=== PATIENT | female | born 1950 | race Caucasian/White ===

== ENCOUNTER 2017-03-06 13:30 | Outpatient (CLI) | payer MEDICARE ==
--- NOTE | 2017-03-07 10:08 | CT Report ---
CT OF THE BRAIN WITHOUT CONTRAST: 03/06/2017 CLINICAL INDICATION: Seven days of headache, nausea. TECHNIQUE: Axial CT images of the brain were obtained without intravenous contrast. No previous CT is available for comparison. FINDINGS: The ventricles and sulci are normal in size, shape and configuration. The basilar cisterns are patent. There is no evidence of hemorrhage, mass effect, or midline shift. The visualized orbita l contents are unremarkable. There is mild ethmoid and sphenoid mucosal thickening present. IMPRESSION: MILD CHRONIC SINUS DISEASE. OTHERWISE, NORMAL CT OF THE BRAIN WITHOUT CONTRAST. In accordance with CT protocol optimization, one or more of the following dose reduction techniques w ere utilized for this exam: automated exposure control, adjustment of mA and/or KV based on patient size, or use of iterative reconstructive technique. JOB #: [id number] EXT JOB #:[id number]
== END 2017-03-06 13:31 | disposition home or self-care (01) ==
LOC: DI 13:30
PROVIDERS: ATTEND Family Medicine
DX: J32.9 Chronic sinusitis, unspecified (principal)
CPT/HCPCS: 70450

== ENCOUNTER 2018-04-09 08:20 | Outpatient (CLI) | payer MEDICARE, OTHER ==
--- NOTE | 2018-04-09 09:39 | Ultrasound Report ---
Reason: RUQ PAIN, NAUSEA, POST PARANDIAL VOMITING Procedure Date: 04/09/2018 Accession Number: [id number] / [id number] Procedure: US - Abdomen Limited CPT Code: FULL RESULT: EXAM: ABDOMEN ULTRASOUND LIMITED, RUQ EXAM DATE: 04/09/2018 08:58 AM. CLINICAL HISTORY: Right upper quadrant pain and nausea. Postprandial vomiting. COMPARISON: 04/09/2018 9:00 AM. TECHNIQUE: Real-time scanning was performed with static images obtained. FINDINGS: Liver: Normal in size and echotexture. Liver measures at least 15.5 cm. Main portal vein flow: Hepatopetal. Gallbladder: Normal. No stones, wall thickening, or sonographic Cervantes's sign. Biliary System: CBD measures 5 mm. No intrahepatic or extrahepatic ductal dilatation. Other: None. IMPRESSION: Normal. No cholelithiasis or cholecystitis. RADIA
== END 2018-04-09 08:21 | disposition home or self-care (01) ==
LOC: DI 08:20
PROVIDERS: ATTEND Family Medicine
DX: R10.11 Right upper quadrant pain (principal); R11.2 Nausea with vomiting, unspecified
CPT/HCPCS: 76705

== ENCOUNTER 2020-09-09 18:43 | Outpatient (CLI) | payer MEDICARE, OTHER | END 2020-09-09 18:44 | disposition home or self-care (01) | LOC: COV 18:43 | PROVIDERS: ATTEND Family Medicine | DX: R06.02 Shortness of breath (principal); M79.10 Myalgia, unspecified site; R53.83 Other fatigue; R68.83 Chills (without fever); R07.0 Pain in throat; R19.7 Diarrhea, unspecified; Z20.822 Contact with and (suspected) exposure to COVID-19 ==

== ENCOUNTER 2022-03-01 10:39 | Outpatient (CLI) | payer MEDICARE ==
--- NOTE | 2022-03-01 14:44 | XRAY Report ---
PROCEDURE: Chest 2 View X-Ray INDICATIONS: SOB TECHNIQUE: 2 view(s) of the chest. COMPARISON: None. FINDINGS: Surgical changes and devices: None. Lungs and pleura: No pleural effusions or pneumothorax. Lungs are clear. Mediastinum: Mediastinal contours are normal. Heart size is normal. Bones and chest wall: No suspicious bony abnormalities. Soft tissues appear unremarkable. IMPRESSION: No acute process. Reviewed by: Jacinto Mckinney MD on 03/01/2022 2:43 PM PDT Approved by: Jacinto Mckinney MD on 03/01/2022 2:43 PM PDT Station ID: [id number]
== END 2022-03-01 10:40 | disposition home or self-care (01) ==
LOC: LAB.N 10:39 → DI.N 10:40
PROVIDERS: ATTEND Physician Assistant
DX: R06.02 Shortness of breath (principal)

== ENCOUNTER 2022-04-12 19:33 | Outpatient (CLI) | payer MEDICARE | END 2022-04-12 19:34 | disposition home or self-care (01) | LOC: SC 19:33 | PROVIDERS: ATTEND Nurse Practitioner Family | DX: G47.33 Obstructive sleep apnea (adult) (pediatric) (principal); E66.9 Obesity, unspecified; Z68.42 Body mass index [BMI] 45.0-49.9, adult | CPT/HCPCS: 95810 ==

== ENCOUNTER 2022-05-03 14:19 | Outpatient (CLI) | payer MEDICARE ==
[2022-05-03 14:54] VITALS: BP 134/70
--- NOTE | 2022-05-03 14:54 | SLEEP CARE CONSULTATION ---
Information from patient questionnaire entered by Nunu Freeman. I have reviewed and concur with the information entered by Nunu Freeman. This document represents the service I personally performed and the decisions made by , Farzana Casiano ARNP. History of Present Illness Service Date and Time: 05/03/2022 1419 Accompanied by: Madisyn Initial [place] Sleepiness Scale score: 5 (04/05/2022) Current [place] Sleepiness Scale score: 5 (05/03/22) Additional HPI information: MELODY CORDOVA returns for follow up and results of the recently performed polysomnography. I explained the pathophysiology behind obstructive sleep apnea. We then spent quite a bit of time discussing different treatment options. For mild obstructive sleep apnea, surgery and oral appliance are alternatives to nasal CPAP therapy but in moderate or severe cases, nasal CPAP is the most effective and reliable treatment. Because apnea is primarily in supine position, then positional management therapy could be effective. Methods discussed such as positioning with pillows to prevent supine sleep. I reviewed the impact of weight changes on sleep apnea and strongly recommended losing weight. After some discussion, the patient opted to go with the nasal CPAP therapy. Nasal autoCPAP set at 4-15 cmH20 will be ordered with rationale explained. A manual titration study will be ordered if unable to find optimal pressure with office adjustments. I explained how CPAP machine works and what to expect when using the machine. Using CPAP every night in order to get used to it was emphasized. Patient advised to put CPAP mask on before getting into bed so as not to fall asleep without CPAP. To assist acclimation to CPAP use, it could also be used for a short time during day while reading or watching TV. The patient was instructed to call the CPAP supplier to discuss any mechanical problem that may occur. If the mask given is uncomfortable or is difficult to keep on through the night even with adjustment, contact the CPAP supplier as many will replace with another mask style if notified before 30 days. If snoring or perceives is not getting enough air or too much air from the machine, notify this office. Patient does not drink alcohol. Patient was cautioned about risks of drowsy driving until sleepiness symptoms resolve. Patient denies drowsy driving. Sleep Study - Results Type of Sleep Study: Polysomnography (DONE 04/12/22) Prior sleep studies: No Polysomnography/Home Sleep Study results: IMPRESSION: The quality of the study is good. The patient had normal sleep efficiency. Despite moderate sleep fragmentation, the sleep architecture was normal. Respiratory monitoring showed moderate obstructive sleep apneahypopnea (AHI = 16.8) associated with frequent arousals, oxyhemoglobin desaturation and mild hypoxia (justus oxygen saturation of 80%). The respiratory events occurred mainly during supine REM sleep (supine AHI = 20.7; non-supine = 8.33). Snore was moderate in intensity. There was no significant periodic leg movement of sleep. Cardiac rhythm was normal sinus rhythm without significant arrhythmia. No abnormal behavior (parasomnia) observed during the night. Allergies and Home Medications Home medication list reviewed: Yes (no changes) Allergy and home medication list: Allergies fish oil Allergy (Verified 10/26/16 14:55) Rash Sulfa (Sulfonamide Antibiotics) Allergy (Verified 10/26/16 14:55) Rash Review of Systems Review of systems same as previous: Yes (no changes) Physical Exam Vital signs obtained and entered by: LOUIS MAZARIEGOS Blood Pressure: 134/70 (left arm ) Cuff size: long Heart Rate: 91 O2 Saturation: 94 Height: 5 ft 5 in Weight: 276 lb Body Mass Index: 45.9 BMI Classification: Morbidly Obese Impression and Plan 1. Obstructive Sleep Apnea-Hypopnea Syndrome, moderate, with lowest oxygen saturation of 80%. Obviously this is the cause of the patients symptoms of unrefreshed sleep, and excessive daytime sleepiness. Positive pressure therapy could benefit diabetes, anxiety, depression and attention deficit. As mentioned above, the patient will be started on nasal autoCPAP therapy with pressure set at 4-15 cmH2O. A manual titration study will be completed if unable to find optimal treatment pressure with office adjustments. Compliance guidelines also reviewed. A copy of compliance guidelines will be given for reference at check out. Because the apnea is more severe supine, I instructed to avoid sleeping supine using pillow positioning until able to start CPAP use. 2. Hypoxemia, mild, with a justus oxygen saturation of 80% and 266.3 minutes spent under 90%. Her baseline oxygen saturation was low normal with an average oxygen saturation of 88%. * Nasal auto CPAP therapy, pressure at 4-15 cm H2O. * Attempt to lose weight. * Avoid alcohol consumption near bedtime. * Avoid supine sleep until using CPAP. * The patient is again cautioned about driving until sleepiness completely resolves. * Return one month after CPAP obtained. I will assess response to therapy and compliance at that time. Counseling Topics: Sleeping position, Weight loss health impact Visit Type: In Office Other Participants: Other (Friend, Madisyn) Time Spent with Patient (minutes): 25 Provider Statement: I spent 100% of the Face to Face Visit with the patient with greater than 50% spent counseling the patient and coordination of care.
== END 2022-05-03 14:20 | disposition home or self-care (01) ==
LOC: SC 14:19
PROVIDERS: ATTEND Nurse Practitioner Family
DX: G47.33 Obstructive sleep apnea (adult) (pediatric) (principal); R09.02 Hypoxemia; E66.01 Morbid (severe) obesity due to excess calories; Z68.42 Body mass index [BMI] 45.0-49.9, adult
CPT/HCPCS: 99213; G0463; 99212

== ENCOUNTER 2022-08-10 10:57 | Outpatient (CLI) | payer MEDICARE ==
[2022-08-10 11:15] LABS: CREATININE 0.8 mg/dL (0.4-1.0)
[2022-08-10] MEDS ORDERED: iohexoL-300 100 ML VIAL ONE (11:35)
[2022-08-10] MEDS ORDERED: iohexoL-300 100 ML VIAL IVP ONE (11:59)
--- NOTE | 2022-08-10 19:12 | CT Report ---
PROCEDURE: IVP INDICATIONS: HEMATURIA CONTRAST: 140ml Omnipaque 300 TECHNIQUE: After the administration of intravenous contrast, 5 mm thick sections acquired from the diaphragms to the symphysis. 5 mm thick coronal and sagittal reformats were acquired. For radiation dose reducti on, the following was used: automated exposure control, adjustment of mA and/or kV according to shelley ent size. COMPARISON: None. FINDINGS: Image quality: Excellent. Lung bases: Bibasilar atelectasis with more linear consolidation in the left lung base. Heart size is normal. Urinary system: Right kidney is normal in size without hydronephrosis or nephrolithiasis on precontrast imaging. Left kidney demonstrates a nonobstructing 3 mm stone. No perinephric stranding. Bilateral ureters are nor mal in course and caliber. No perinephric fat stranding. There is normal bilateral renal enhancement. Renal calyces appear normal in morphology when filled with contrast. Opacified portions of both ureters demonstrate normal caliber. Bladder wall thickness is normal. No calcified bladder stones. Other solid organs: Liver is normal in size and enhancement. Gallbladder is unremarkable. Biliary system is non dilated. Pancreas enhances normally. Spleen is normal in size and enhancement. No adrenal nodules. Peritoneum and bowel: Bowel loops demonstrate normal wall thickness and caliber. Scattered colonic d iverticula without evidence for acute diverticulitis. No free fluid or air. Nodes and vessels: No retroperitoneal or mesenteric adenopathy by size criteria. Aorta and inferior vena cava are normal in size. Scattered atherosclerotic calcifications of the abdo jessica aorta. Abdominal wall: No ventral hernias. Pelvis: No pathologic free pelvic fluid. No inguinal hernias. No pelvic adenopathy. Bones: No suspicious bony lesions. No acute vertebral body compression fractures. Multilevel spondylosis of the imaged spine. IMPRESSION: 1. A 3 mm nonobstructing left renal stone without evidence for hydronephrosis. No ureteral stone or a cute inflammatory changes identified. Otherwise, unremarkable CT IVP. No acute abnormalities identifi ed in the abdomen or pelvis. 2. Bibasilar atelectasis with more prominent linear consolidation along the left lung base favored to represent atelectasis/scarring. 3. Colonic diverticulosis without acute diverticulitis. Reviewed by: Dany Salgado MD on 08/10/2022 7:11 PM PST Approved by: Dany Salgado MD on 08/10/2022 7:11 PM [facility] Station ID: [id number]
== END 2022-08-10 10:58 | disposition home or self-care (01) ==
LOC: LAB 10:57
PROVIDERS: ATTEND Urology
DX: N20.0 Calculus of kidney (principal); J98.11 Atelectasis; K57.30 Diverticulosis of large intestine without perforation or abscess without bleeding
CPT/HCPCS: 36415; 74178; 82565; 84520; Q9967

== ENCOUNTER 2022-12-18 07:53 | Outpatient (CLI) | payer MEDICARE ==
--- NOTE | 2022-12-18 10:38 | XRAY Report ---
PROCEDURE: Lumbar Spine 2 View INDICATIONS: LOW BACK PX TECHNIQUE: 2 views of the lumbar spine were acquired. COMPARISON: None. FINDINGS: Bones: 5 [id number] vertebrae are present. Grade 1 anterolisthesis of L4 on L5, similar due to facet arthrosis. Mild to moderate, multilevel degenerative disc disease. Facet arthrosis L3-S1. Soft tissues: Overlying bowel gas pattern is normal. No suspicious soft tissue calcifications. IMPRESSION: Mild to moderate, multilevel degenerative disc disease and lower lumbar facet arthrosis. Reviewed by: Bolivar Neri on 12/18/2022 10:37 AM PDT Approved by: Bolivar Neri on 12/18/2022 10:37 AM PDT Station ID: [id number]
== END 2022-12-18 07:54 | disposition home or self-care (01) ==
LOC: DI 07:53
PROVIDERS: ATTEND Physician Assistant
DX: M51.36 Other intervertebral disc degeneration, lumbar region (principal); M47.816 Spondylosis without myelopathy or radiculopathy, lumbar region; M47.817 Spondylosis without myelopathy or radiculopathy, lumbosacral region

== ENCOUNTER 2023-01-03 12:50 | Outpatient (CLI) | payer MEDICARE ==
--- NOTE | 2023-01-03 14:21 | Ultrasound Report ---
PROCEDURE: Ankle Brachial Index INDICATIONS: PAIN IN RIGHT LEG TECHNIQUE: Ankle-brachial indices were obtained bilaterally and recorded. COMPARISONS: None. FINDINGS: Right ankle brachial index (GIACOMO): 0.96 Left ankle brachial index (GIACOMO): 0.93 Healing potential: Ankle pressures >55 mm Hg in non-diabetics and >80 mm Hg in diabetics are likely to achieve primary h ealing of ischemic foot ulcers. Toe pressures >30 mm Hg are likely to achieve primary healing of ischemic foot ulcers, toe or transme tatarsal amputations. IMPRESSION: Mildly diminished ABIs, not frankly abnormal. Comment: Consider repeating ABIs at stress and at rest to identify whether a hemodynamically signific ant lesion is unmasked. Reviewed by: Domenico Frey MD on 01/03/2023 2:20 PM PDT Approved by: Domenico Frey MD on 01/03/2023 2:20 PM PDT Station ID: [id number]
== END 2023-01-03 12:51 | disposition home or self-care (01) ==
LOC: DI 12:50
PROVIDERS: ATTEND Physician Assistant
DX: M53.3 Sacrococcygeal disorders, not elsewhere classified (principal); M79.604 Pain in right leg
CPT/HCPCS: 93922

== ENCOUNTER 2023-03-21 13:16 | Outpatient (CLI) | payer MEDICARE ==
--- NOTE | 2023-03-21 18:31 | XRAY Report ---
PROCEDURE: Calcaneus LT INDICATIONS: HEEL PAIN,LEFT TECHNIQUE: Two views of the calcaneus were acquired. COMPARISON: None FINDINGS: Bones: No fractures or dislocations. No suspicious bony lesions. Minimal linear soft tissue calcif ication noted associated with the plantar fascia as well as the Achilles tendon Soft tissues: No suspicious calcifications. Achilles tendon appears normal. IMPRESSION: Minimal linear degenerative soft tissue calcification Reviewed by: Gordon Glass MD on 03/21/2023 5:29 PM [facility] Approved by: Gordon Glass MD on 03/21/2023 5:29 PM [facility] Station ID: [id number]
== END 2023-03-21 13:17 | disposition home or self-care (01) ==
LOC: DI 13:16
PROVIDERS: ATTEND Registered Nurse
DX: M79.672 Pain in left foot (principal); M61.472 Other calcification of muscle, left ankle and foot

== ENCOUNTER 2023-04-24 11:12 | Outpatient (CLI) | payer MEDICARE ==
--- NOTE | 2023-04-24 11:34 | Sleep Patient Instructions ---
Sleep Center Visit Summary - Patient Visit Information Reason for Visit: First compliance followup for PAP therapy - Patient Instructions Additional Instructions: You will continue with CPAP therapy with pressure changed to 10-12 cmH2O. A supply prescription will be updated with your DME. We encourage you to continue to try to lose weight. Please follow up with the sleep care office in 1 year. - Clinic Information Contact: [facility] [address] [place] [address] [email or web address] T: [phone]
--- NOTE | 2023-04-24 11:38 | SLEEP CARE CONSULTATION ---
Information from patient questionnaire entered by Angelia Osei. I have reviewed and concur with the information entered by Angelia Osei. This document represents the service I personally performed and the decisions made by , Farzana Casiano ARNP. History of Present Illness Service Date and Time: 04/24/2023 111 Previous diagnosis: Moderate, Obstructive Sleep Apnea-Hypopnea Syndrome AHI: 16.8 (03/2022) Reason for follow up: first compliance (and annual visit) Equipment type: CPAP (ResMed Airsense 11, s/u 06/2022) Equipment obtained from: [employer] (getting supplies) Mask style: Nasal Mask brand: Respironics (Dreamwear, medium headgear and medium cushion) Backup mask available: Yes (needs supplies) Last cushion change: 4 months Prior sleep studies: No Type of Sleep Study: Polysomnography (DONE 04/12/22) HPI additional information: MELODY CORDOVA was diagnosed to have moderate, AHI 16.8, obstructive sleep apnea-hypopnea syndrome and returned today for CPAP therapy first compliance follow-up. Sleep Study - Results Type of Sleep Study: Polysomnography (DONE 04/12/22) Prior sleep studies: No CPAP Compliance Data - Data Reviewed with Patient Average duration of nightly device use: 6 HRS 25 MINS Compliance rate %: 87 (03/21/23-04/19/23; /30 days used) Current pressure setting (cmH2O): 4-15 (median 8.4, avg 11.5, max 12.6) Average residual AHI: 1.4 Central apnea: 0.1 Obstructive apnea: 0.9 Average large leak: 2.1 L/min Subjective Patient concerns: denies: aerophagia, mask discomfort, air blowing in eyes, mask leak noise, condensation in mask/hose, nasal congestion, dry mouth, nose, throat, epistaxis Observed to snore while using device: No Current pressure setting perceived as: comfortable On therapy, patient: reports: sleeping better, awakening more refreshed, being more awake and alert during the day, more rested overall. denies: drowsiness while driving Initial [place] Sleepiness Scale score: 5 (04/05/2022) Current [place] Sleepiness Scale score: 3 (04/24/23) Allergies and Home Medications Known drug allergies: Yes Drug allergies reviewed: Yes Home medication list reviewed: Yes (no changes) Allergy and home medication list: Allergies fish oil Allergy (Verified 04/23/23 09:08) Rash Sulfa (Sulfonamide Antibiotics) Allergy (Verified 04/23/23 09:08) Rash Home Medications Medication Instructions Recorded Confirmed Last Taken Type Cholecalciferol (Vitamin D3) 2,000 unit PO DAILY 10/26/16 04/24/23 Unknown History [Vitamin D] Citalopram [CeleXA] 20 mg PO DAILY 10/26/16 04/24/23 Unknown History Metformin HCl 500 mg PO BIDWM 10/26/16 04/24/23 Unknown History Naproxen Sodium [Aleve] 220 mg PO DAILY PRN 10/26/16 04/24/23 Unknown History Review of Systems Review of systems same as previous: Yes (no changes) Physical Exam Vital signs obtained and entered by: ANGELIA Barahona MA Blood Pressure: 143/70 (RIGHT) Cuff size: wrist Heart Rate: 72 O2 Saturation: 93 Height: 5 ft 5 in Weight: 275 lb 12.8 oz Weight change since last visit: 1 lb loss - walking new dog Body Mass Index: 45.8 BMI Classification: Morbidly Obese Impression and Plan 1. Obstructive Sleep Apnea-Hypopnea Syndrome, moderate, with good treatment compliance and good apnea control. On CPAP therapy, the patient has better sleep quality and is more rested overall. Patient has significant improvement of their sleep apnea and is satisfied with current CPAP therapy. Patient is definitely compliant since she started using her CPAP. She has had some issues with getting supplies but we did not see her for her compliance visit last year. I will update her prescription with her [email or web address] company. The patients pressure will be changed to autoCPAP 10-12 cmH20 to reflect pressure being used. Patient advised to contact me if pressure change is uncomfortable so that it can be adjusted. Goals for apnea control discussed. Patient's apnea severity and rationale for treatment to reduce apnea, improve sleep quality and reduce cardiovascular and cerebrovascular events was reviewed. I also reviewed the benefit of consistent device use of CPAP for diabetes, depression, anxiety and attention deficit. 2. Obesity, unspecified. Currently patients BMI is 45.8. She states she did gain to over 280 pounds but has been losing weight since she got a new dog and has been taking walks with them. Obesity increases the risk of apnea, CPAP pressure requirements and overall health risks especially cardiovascular and diabetes. Thus patient is advised to continue to try to lose weight. * Continue auto CPAP pressure at 10-12 cmH2O * Update supplies * Notify me if snoring with mask or feeling that the pressure is too much or too little * Continue to try to lose weight * Call this office if any problems using CPAP * Return for follow up in 1 year, or sooner if concerns arise Counseling Topics: Spare mask, Weight loss health impact Prescriptions: Device supplies Visit Type: In Office Time Spent with Patient (minutes): 21 Provider Statement: I spent 100% of the Face to Face Visit with the patient with greater than 50% spent counseling the patient and coordination of care.
[2023-04-24 11:41] VITALS: BP 143/70; O2SAT 93
== END 2023-04-24 11:13 | disposition home or self-care (01) ==
LOC: SC 11:12
PROVIDERS: ATTEND Nurse Practitioner Family
DX: G47.33 Obstructive sleep apnea (adult) (pediatric) (principal); E66.01 Morbid (severe) obesity due to excess calories; Z68.42 Body mass index [BMI] 45.0-49.9, adult
CPT/HCPCS: 99213; G0463; 99212

== ENCOUNTER 2023-07-04 11:10 | Outpatient (CLI) | payer MEDICARE ==
--- NOTE | 2023-07-04 11:41 | Sleep Patient Instructions ---
Sleep Center Visit Summary - Patient Visit Information Reason for Visit: Two Month Followup - Patient Instructions Additional Instructions: You were here for follow up of CPAP therapy. You will be continued on CPAP therapy with pressure at 10-12 cmH2O. You should follow up with sleep care in 6 months. You may contact us sooner for any questions or concerns. - Clinic Information Contact: [facility] [address] [place] [id number] [email or web address] T: [phone]
--- NOTE | 2023-07-04 11:45 | SLEEP CARE CONSULTATION ---
Information from patient questionnaire entered by Nikki Osei. I have reviewed and concur with the information entered by Nikki Osei. This document represents the service I personally performed and the decisions made by , Farzana Casiano ARNP. History of Present Illness Service Date and Time: 07/04/2023 1110 Previous diagnosis: Moderate, Obstructive Sleep Apnea-Hypopnea Syndrome AHI: 16.8 (03/2022) Reason for follow up: other (Two month follow up) Equipment type: CPAP (ResMed Airsense 11, s/u 06/2022) Equipment obtained from: [employer] (getting supplies) Mask style: Nasal Backup mask available: Yes Prior sleep studies: No Type of Sleep Study: Polysomnography (DONE 04/12/22) HPI additional information: THU CORDOVA was diagnosed to have moderate, AHI 16.8, obstructive sleep apnea-hypopnea syndrome and returned today for CPAP therapy two month follow-up. Sleep Study - Results Type of Sleep Study: Polysomnography (DONE 04/12/22) Prior sleep studies: No CPAP Compliance Data - Data Reviewed with Patient Average duration of nightly device use: 6 HRS 41 MIN Compliance rate %: 75 (05/03/23-07/01/23; 45/60 days used) Current pressure setting (cmH2O): 10-12 Average residual AHI: 1.4 Central apnea: 0.2 Obstructive apnea: 0.9 Average large leak: 3.7 L/min Subjective Missed days of use due to: reports: other (fall asleep in recliner due to taking Trazodone) Patient concerns: denies: aerophagia, mask discomfort, air blowing in eyes, mask leak noise, condensation in mask/hose, nasal congestion, dry mouth, nose, throat, epistaxis Observed to snore while using device: No Current pressure setting perceived as: comfortable On therapy, patient: reports: sleeping better, awakening more refreshed, being more awake and alert during the day, more rested overall. denies: drowsiness while driving Initial [place] Sleepiness Scale score: 5 (04/05/2022) Current [place] Sleepiness Scale score: 8 (07/04/23) Allergies and Home Medications Known drug allergies: Yes (as listed) Drug allergies reviewed: Yes Home medication list reviewed: Yes (Zinc 50 mg) Allergy and home medication list: Allergies fish oil Allergy (Verified 07/03/23 14:11) Rash Sulfa (Sulfonamide Antibiotics) Allergy (Verified 07/03/23 14:11) Rash Review of Systems Review of systems same as previous: Yes (NO CHANGE) Physical Exam Vital signs obtained and entered by: NIKKI Barahona MA Blood Pressure: 136/83 (LEFT) Cuff size: wrist Heart Rate: 73 O2 Saturation: 92 Height: 5 ft 5 in Weight: 273 lb 12.8 oz Body Mass Index: 45.6 BMI Classification: Morbidly Obese Impression and Plan 1. Obstructive Sleep Apnea-Hypopnea Syndrome, moderate, with good treatment compliance and good apnea control. On CPAP therapy, the patient has better sleep quality and is more rested overall. Patient has significant improvement of their sleep apnea and is satisfied with current CPAP therapy. Patient denies problems with oral dryness, nasal congestion, epistaxis, skin irritation or aerophagia. Thu will followup with us in 6 months or sooner if needed. Patient's apnea severity and rationale for treatment to reduce apnea, improve sleep quality and reduce cardiovascular and cerebrovascular events was reviewed. I also reviewed the benefit of consistent device use of CPAP for diabetes, depression, anxiety and attention deficit. 2. Obesity, unspecified. Currently patients BMI is 45.6. Obesity increases the risk of apnea, CPAP pressure requirements and overall health risks especially cardiovascular and diabetes. Thus patient is advised to lose weight. * Continue auto CPAP pressure at 10-12 cmH2O * Notify me if snoring with mask or feeling that the pressure is too much or too little * Attempt to lose weight * Call this office if any problems using CPAP * Return for follow up in 6 months, or sooner if concerns arise Counseling Topics: Spare mask, Weight loss health impact Follow up with Sleep Care in: 6 months Visit Type: In Office Time Spent with Patient (minutes): 20 Provider Statement: I spent 100% of the Face to Face Visit with the patient with greater than 50% spent counseling the patient and coordination of care.
[2023-07-04 11:49] VITALS: BP 136/83; O2SAT 92
== END 2023-07-04 11:11 | disposition home or self-care (01) ==
LOC: SC 11:10
PROVIDERS: ATTEND Nurse Practitioner Family
DX: G47.33 Obstructive sleep apnea (adult) (pediatric) (principal); E66.01 Morbid (severe) obesity due to excess calories; Z68.42 Body mass index [BMI] 45.0-49.9, adult
CPT/HCPCS: 99213; G0463; 99212

== ENCOUNTER 2023-08-23 11:09 | Outpatient (CLI) | payer MEDICARE ==
[2023-08-23] MEDS ORDERED: ALBUTEROL 1 PUFF INH STA (14:45)
== END 2023-08-23 11:10 | disposition home or self-care (01) ==
LOC: RT 11:09
PROVIDERS: ATTEND Physician Assistant
DX: R05.9 Cough, unspecified (principal); R06.02 Shortness of breath
CPT/HCPCS: 94060; 94729

== ENCOUNTER 2023-09-12 11:36 | Outpatient (CLI) | payer MEDICARE ==
[2023-09-12 12:03] LABS: CALCIUM 9.2 mg/dL (8.5-10.3); CREATININE 0.9 mg/dL (0.6-1.3)
[2023-09-12] MEDS ORDERED: iohexoL-300 100 ML VIAL ONE (12:32)
[2023-09-12] MEDS ORDERED: iohexoL-300 100 ML VIAL IVP ONE (15:13)
--- NOTE | 2023-09-12 16:42 | CT Report ---
PROCEDURE: Chest W INDICATIONS: ABN PFT CONTRAST: Omni 300 100ml TECHNIQUE: After the administration of intravenous contrast, a CT scan of the chest was performed. Images were recorded and evaluated at appropriate window settings. Reformats: axial MIP of the chest, coronal and sagittal. For radiation dose reduction, the following was used: automated exposure control, adjustme nt of mA and/or kV according to patient size. COMPARISON: CT 08/10/2022 FINDINGS: Image quality: Diagnostic Lungs and pleura:Suspected basal scarring and atelectasis. More focal area of segmental atelectasis i s seen in the left lower lobe. No honeycombing, significant peripheral reticulation, consolidation, o r pleural effusions. Mediastinum, heart, and esophagus: Borderline heart size. Prominent pericardial folds filled with flu id. There are borderline enlarged mediastinal and hilar lymph nodes, for example precarinal lymph nod e measures 9 mm in short axis (12/144). Chest wall and thyroid: Heterogeneous left thyroid nodule measures about 3 cm. Left lateral breast le amilcar measures up to 2.8 cm. Upper abdomen: No gross abnormality. Adrenal thickening and nodularity again seen. Bones: Degenerative changes. IMPRESSION: Suspected mass in the left breast, recommend diagnostic mammogram and ultrasound. This was marked as an urgent result on PACS for follow-up. Multiple heterogeneous thyroid nodules, consider thyroid nonemergent ultrasound. No significant fibrotic changes in the lungs. There is segmental atelectasis in the left lower lobe, indeterminate etiology, most commonly due to mucous plugging. In the setting of abnormal PFTs, consid er follow-up with high-resolution chest CT Reviewed by: Javier Matta MD on 09/12/2023 4:41 PM PST Approved by: Javier Matta MD on 09/12/2023 4:41 PM PST Station ID: [id number]
== END 2023-09-12 11:37 | disposition home or self-care (01) ==
LOC: DI 11:36
PROVIDERS: ATTEND Physician Assistant
DX: R94.2 Abnormal results of pulmonary function studies (principal); R93.89 Abnormal findings on diagnostic imaging of other specified body structures; E04.2 Nontoxic multinodular goiter; J98.11 Atelectasis
CPT/HCPCS: 36415; 71260; 80048; Q9967

== ENCOUNTER 2023-09-26 10:52 | Outpatient (CLI) | payer MEDICARE ==
--- NOTE | 2023-09-26 14:35 | Ultrasound Report ---
PROCEDURE: Soft Tissue Head or Neck INDICATIONS: THYROID NODULES TECHNIQUE: Real-time scanning was performed of the thyroid gland, with image documentation. COMPARISON: CT 09/12/2023 FINDINGS: Right: Thyroid lobe measures 4.4 x 1.3 x 1.7 cm, and is homogeneous in echotexture. Left: Thyroid lobe measures 5.7 x 2.9 x 1.4 cm, and is homogenous in echotexture. Isthmus: 0.4 cm thick. Left inferior thyroid nodule measures 3.7 x 2.5 x 3.6 cm. Suspected cystic/spongiform components are seen, however discrete solid components are also visualized, with a possible internal macroscopic rody cification (which was confirmed on CT). Margins are smooth. Isoechoic solid echotexture. Total 4 poin ts. IMPRESSION: TR 4 left inferior thyroid nodule. This is moderately suspicious. Macroscopic calcificat ion was confirmed on CT. Recommend FNA. ACR TI-RADS definitions and recommendations: TI-RADS 1 (benign): 0 points. FNA not needed. TI-RADS 2 (not suspicious): 2 points. FNA not needed. TI-RADS 3 (mildly suspicious): 3 points. "FNA if 2.5 cm or larger, follow up if 1.5 cm or larger (at 1, 3, and 5 years). TI-RADS 4 (moderately suspicious): 4-6 points. "FNA if 1.5 cm or larger, follow up if 1 cm or larger (at 1, 2, 3, and 5 years). TI-RADS 5 (highly suspicious): 7 points or more. "FNA if 1 cm or larger, follow up if 0.5 cm or larger (every year for 5 years). Reviewed by: Javier Matta MD on 09/26/2023 2:34 PM PST Approved by: Javier Matta MD on 09/26/2023 2:34 PM PST Station ID: [id number]
== END 2023-09-26 10:53 | disposition home or self-care (01) ==
LOC: DI 10:52
PROVIDERS: ATTEND Physician Assistant
DX: E04.1 Nontoxic single thyroid nodule (principal)

== ENCOUNTER 2023-11-27 12:26 | Outpatient (CLI) | payer MEDICARE ==
--- NOTE | 2023-11-28 10:50 | Mammography Report ---
BILATERAL DIGITAL DIAGNOSTIC MAMMOGRAM 3D/2D: 11/27/2023 CLINICAL: Suspected left breast mass seen on Chest CT. Due for bilateral exam. Comparison is made to exams dated: 07/09/2019 mammogram, 04/17/2018 mammogram, and 03/29/2017 mammogram - [facility]. There are scattered areas of fibroglandular density in both breasts (category b / 25%-50% glandular t issue). There is a 2.6 cm irregular and multilobulated asymmetry with an obscured, spiculated, indistinct, an d circumscribed margin in the left breast at 1 o'clock posterior depth. There is associated slight a rchitectural distortion. This is seen in additional views. Portions of this asymmetry are new, some parts are more prominent. No other significant masses, calcifications, or other findings are seen in either breast. Mammograms are otherwise stable. IMPRESSION: INCOMPLETE: NEEDS ADDITIONAL IMAGING EVALUATION The 2.6 cm irregular asymmetry in the left breast at the 1:00 position has developed and is suspiciou s. An ultrasound is recommended. This was performed immediately following this exam. Based on the Tyrer Cuzick model (a risk assessment model) the patient's lifetime risk is 5.3% and her 10 year risk is 3.6%. According to the ACR, ACS, and NCCN guidelines, an annual breast MRI exam segun g with mammogram is recommended if the patient's lifetime risk is 20% or greater. This exam was interpreted at Station ID: [id number]. NOTE: For mammograms, a report in lay terms will be sent to the patient. Approximately 15% of breast malignancies will not be visualized mammographically. In the management of a palpable breast mass, a negative mammogram must not discourage biopsy of a clinically suspicious lesion. Electronically Signed By: Teena cook/:11/27/2023 13:19:29 ACR BI-RADS Category 0: Incomplete 3340F PARENCHYMAL PATTERN: (A) - The breast(s) demonstrate(s) scattered fibroglandular densities. BI-RADS CATEGORY: (0) - 0 Ultrasound [id number] Immediate follow-up LATERALITY: (B)
--- NOTE | 2023-11-28 10:51 | Ultrasound Report ---
LIMITED ULTRASOUND OF LEFT BREAST AND AXILLA: 11/27/2023 CLINICAL: Abnormal CT. Left Breast mass. Comparison is made to exams dated: 11/27/2023 mammogram - [facility], 07/25/2021 ma mmogram, 07/09/2019 mammogram, 04/17/2018 mammogram, 03/29/2017 mammogram, and 03/07/2016 mammogram - [facility]. Color flow ultrasound of the left breast 1-2 o'clock, and axilla regions was performed. Kaur scale images of the real-time examination were reviewed. There is a 2.4 cm x 1.6 cm x 1.2 cm oval mass with a circumscribed, angular, and spiculated margin in the left breast at 1 o'clock middle depth 7 cm from the nipple. This oval mass is hypoechoic with p osterior acoustic shadowing. This correlates with mammography findings. There is associated archite ctural distortion. Color flow imaging demonstrates that there is increased vascularity. No significant abnormalities were seen sonographically in the left axilla. IMPRESSION: SUSPICIOUS OF MALIGNANCY The 2.4 cm x 1.6 cm x 1.2 cm oval mass in the left breast is at a moderate suspicion for malignancy. An ultrasound guided biopsy is recommended. Findings and recommendations were discussed with the tommy amin in person by Dr. Tera Nicolas at time of exam. This exam was interpreted at Station ID: [id number]. Electronically Signed By: Teena cook/:11/27/2023 13:46:12 Ultrasound BI-RADS: 4b Moderate suspicion of malignancy BI-RADS CATEGORY: (4b) - Mod Susp Biopsy [id number] Immediate follow-up LATERALITY: (L)
== END 2023-11-27 12:27 | disposition home or self-care (01) ==
LOC: DI 12:26
PROVIDERS: ATTEND Physician Assistant
DX: N63.21 Unspecified lump in the left breast, upper outer quadrant (principal)

== ENCOUNTER 2023-12-04 09:35 | Outpatient (CLI) | payer MEDICARE ==
[~2023-12-04 09:35] MED LIST: LIDOCAINE 1%-EPI 1:100000 20 ML MDV ONE; LIDOCAINE-MPF 1% 5 ML VIAL ONE
[2023-12-04] MEDS: LIDOCAINE-MPF 1% 5 ML VIAL TD ONE (11:02)
[2023-12-04] MEDS: LIDOCAINE 1%-EPI 1:100000 20 ML MDV SUBQ ONE (11:03)
--- NOTE | 2023-12-05 09:59 | Mammography Report ---
UNILATERAL LEFT DIGITAL DIAGNOSTIC MAMMOGRAM - LEFT BREAST POST-PROCEDURE IMAGING FOR MARKER PLACEMEN CLINICAL: Post left breast ultrasound biopsy clip placement imaging. Comparison is made to exams dated: 11/27/2023 ultrasound, 11/27/2023 mammogram - [facility], and 07/25/2021 mammogram - [facility]. There are scattered areas of fibroglandular density in the left breast (category b / 25%-50% glandula r tissue). There is a marker clip in the appropriate position in the left breast at 1 o'clock middle depth. IMPRESSION: POST PROCEDURE MAMMOGRAM FOR MARKER PLACEMENT There was a successful marker clip placement in the left breast middle depth. Based on the Tyrer Cuzick model (a risk assessment model) the patient's lifetime risk is 5.3% and her 10 year risk is 3.6%. According to the ACR, ACS, and NCCN guidelines, an annual breast MRI exam segun g with mammogram is recommended if the patient's lifetime risk is 20% or greater. This exam was interpreted at Station ID: [id number]. NOTE: For mammograms, a report in lay terms will be sent to the patient. Approximately 15% of breast malignancies will not be visualized mammographically. In the management of a palpable breast mass, a negative mammogram must not discourage biopsy of a clinically suspicious lesion. Electronically Signed By: Javier Matta M.D. lc/:12/04/2023 14:24:41 ACR BI-RADS Category Post-procedure mammogram for marker placement PARENCHYMAL PATTERN: (A) - The breast(s) demonstrate(s) scattered fibroglandular densities. BI-RADS CATEGORY: () - Unspecified - other recall n/a LATERALITY: (B)
--- NOTE | 2023-12-18 10:47 | Ultrasound Report ---
ULTRASOUND GUIDED BIOPSY LEFT BREAST USING VACUUM DEVICE WITH MARKING DEVICE INSERTED: 12/04/2023 CLINICAL: Left breast mass. PATIENT CONSENT: Risks (minor bleeding, infection, vasovagal reaction and repeat procedure), benefits and alternatives were explained to the patient and written informed consent was obtained. Correlation is made to exams dated: 12/04/2023 mammogram, 11/27/2023 ultrasound, 11/27/2023 mammogram - [facility], 07/25/2021 mammogram, 07/09/2019 mammogram, and 04/17/2018 mammogram - [facility]. An ultrasound guided biopsy using real-time ultrasound was performed for the concerning 2.4 cm x 1.6 cm x 1.2 cm mass located in the left breast at 1 o'clock middle depth 7 cm from the nipple. This was described on the previous ultrasound report. The skin was prepped in the usual manner. Local anest hetic was administered to the access site. A skin ny was made in the breast. The abnormality was approached from the lateral aspect. A 12 gauge biopsy needle was placed adjacent to the abnormality under ultrasound guidance. Once the needle was documented to be in the correct location, four specim ens were obtained using the Mammotome biopsy system. A clip was inserted into the biopsy cavity. Po st procedure imaging demonstrates the location device at the targeted area. The specimens were sent to the laboratory for pathological analysis. IMPRESSION: ULTRASOUND GUIDED BIOPSY MALIGNANT Ultrasound guided biopsy of the 2.4 cm x 1.6 cm x 1.2 cm mass in the left breast at 1 o'clock middle depth 7 cm from the nipple was successful. Pathology indicates malignant invasive ductal carcinoma ( ID). Pathology results are concordant with imaging findings. This lesion was biopsied on two separate days and two clips are present. Surgical/oncologic followup recommended. This exam was interpreted at Station ID: [id number]. Javier Matta M.D. lc/:12/14/2023 14:51:11 BI-RADS CATEGORY: () - Unspecified - other recall n/a LATERALITY: (B)
== END 2023-12-04 09:36 | disposition home or self-care (01) ==
LOC: DI 09:35
PROVIDERS: ATTEND Physician Assistant
DX: R92.322 Mammographic fibroglandular density, left breast (principal); N60.12 Diffuse cystic mastopathy of left breast; C50.412 Malignant neoplasm of upper-outer quadrant of left female breast
CPT/HCPCS: 19083

== ENCOUNTER 2023-12-11 12:13 | Outpatient (CLI) | payer MEDICARE ==
[2023-12-11] MEDS: LIDOCAINE 1%-EPI 1:100000 20 ML MDV SUBQ ONE (13:36)
[2023-12-11] MEDS: LIDOCAINE-MPF 1% 5 ML VIAL TD ONE (13:37)
--- NOTE | 2023-12-12 09:38 | Mammography Report ---
UNILATERAL LEFT DIGITAL DIAGNOSTIC MAMMOGRAM - LEFT BREAST POST-PROCEDURE IMAGING FOR MARKER PLACEMEN CLINICAL: Post left breast ultrasound biopsy clip placement imaging. Comparison is made to exams dated: 12/04/2023 mammogram, 11/27/2023 mammogram - [facility], 07/25/2021 mammogram - [facility], and 12/04/2023 ultrasound biopsy - [facility]. There are scattered areas of fibroglandular density in the left breast (category b / 25%-50% glandula r tissue). There is a marker clip in the appropriate position in the left breast at 1 o'clock posterior depth. IMPRESSION: POST PROCEDURE MAMMOGRAM FOR MARKER PLACEMENT There was a successful marker clip placement in the left breast posterior depth. No charge repeat bi opsy. Based on the Tyrer Cuzick model (a risk assessment model) the patient's lifetime risk is 5.3% and her 10 year risk is 3.6%. According to the ACR, ACS, and NCCN guidelines, an annual breast MRI exam segun g with mammogram is recommended if the patient's lifetime risk is 20% or greater. This exam was interpreted at Station ID: [id number]. NOTE: For mammograms, a report in lay terms will be sent to the patient. Approximately 15% of breast malignancies will not be visualized mammographically. In the management of a palpable breast mass, a negative mammogram must not discourage biopsy of a clinically suspicious lesion. Electronically Signed By: Javier Matta M.D. lc/:12/11/2023 13:55:27 ACR BI-RADS Category Post-procedure mammogram for marker placement PARENCHYMAL PATTERN: (A) - The breast(s) demonstrate(s) scattered fibroglandular densities. BI-RADS CATEGORY: () - Unspecified - other recall n/a LATERALITY: (B)
== END 2023-12-11 12:14 | disposition home or self-care (01) ==
LOC: DI 12:13
PROVIDERS: ATTEND Physician Assistant
DX: C50.412 Malignant neoplasm of upper-outer quadrant of left female breast (principal); Z17.0 Estrogen receptor positive status [ER+]
CPT/HCPCS: 19083

== ENCOUNTER 2024-01-15 09:23 | Day surgery (SDC) | payer MEDICARE ==
[~2024-01-15 09:23] MED LIST changes: -LIDOCAINE 1%-EPI 1:100000 20 ML MDV ONE; +ceFAZolin 2 GM VIAL ONE
[2024-01-15] MEDS: LACTATED RINGERS 1,000 ML IV ONE (09:28)
[2024-01-15] MEDS: LIDOCAINE-MPF 1% 5 ML VIAL TD ONE (11:54)
[2024-01-15] MEDS ORDERED: BUPIVACAINE 0.5%-EPI 1:200000 PF 30 ML VIAL ONE (12:04)
--- NOTE | 2024-01-15 12:51 | ANESTHESIA ---
Pre-Anesthesia VS, & Labs - Diagnosis Left breast cancer - Procedure left breast wire localized lumpectomy with sentinel node biopsy Vital Signs: Temp Pulse Resp BP Pulse Ox O2 Flow Rate 36.6 C 70 16 152/80 H 97 01/15/24 09:35 01/15/24 09:35 01/15/24 09:35 01/15/24 09:35 01/15/24 09:35 Height: 5 ft 5.5 in Weight (kg): 124.8 kg Body Mass Index: 45.1 BMI Classification: Morbidly Obese - NPO >8 hours - Is Patient ?: No - Lab Results Current Lab Results: Laboratory Tests 01/15/24 09:58: POC Whole Bld Glucose 117 H Lab results reviewed: Yes Home Medications and Allergies Home Medications: Ambulatory Orders Aspirin EC [Ecotrin] 81 mg PO DAILY 01/04/24 Atorvastatin [Lipitor] 20 mg PO QPM 01/04/24 Escitalopram Oxalate [Lexapro] 20 mg PO DAILY 01/04/24 Trazodone HCl 100 mg PO QPM 01/04/24 Cholecalciferol (Vitamin D3) [Vitamin D] 2,000 unit PO DAILY 10/26/16 Zinc Gluconate [Zinc] 50 mg PO DAILY 07/04/23 Aspirin EC [Ecotrin] 81 mg PO DAILY 01/04/24 Atorvastatin [Lipitor] 20 mg PO QPM 01/04/24 Escitalopram Oxalate [Lexapro] 20 mg PO DAILY 01/04/24 Trazodone HCl 100 mg PO QPM 01/04/24 Allergies/Adverse Reactions: Allergies Allergy/AdvReac Type Severity Reaction Status Date / Time fish oil Allergy Rash Verified 12/31/23 09:29 shrimp Allergy Itching Verified 01/04/24 14:35 Sulfa (Sulfonamide Allergy Rash Verified 12/31/23 09:29 Antibiotics) Anes History & Medical History - Anesthetic History Anesthesia Complications: reports: No previous complications - Medical History Cardiovascular: reports: High cholesterol Pulmonary: reports: Sleep apnea, CPAP use Gastrointestinal: reports: None Urinary: reports: None Neuro: reports: None Musculoskeletal: reports: Osteoarthritis, Chronic back pain Endocrine/Autoimmune: reports: Type 2 diabetes Skin: reports: None Smoking Status: Former smoker Psychosocial: reports: Depression History of Cancer?: Yes (breast cancer) - Surgical History General: reports: Colonoscopy Gynecologic: reports: Hysterectomy, Other Orthopedic: reports: Knee replacement Exam General: Alert, Oriented x3, Cooperative, No acute distress Dental: Other (front lower missing) Mouth Openin Fingerbreadth Neck Mobility: Normal Mallampati classification: II Thyromental Distance: 4-6 cm Mental/Cognitive Status: Alert/Oriented X3, Normal for patient Plan Anesthesia Type: General Consent for Procedure(s) Verified and Reviewed: Yes Code Status: Attempt Resuscitation ASA classification: 3-Severe systemic disease Is this case an emergency?: No
[2024-01-15] MEDS ORDERED: ONDANSETRON 4 MG/2 ML VIAL IVP PRN (12:53)
[2024-01-15] MEDS ORDERED: HYDROmorphone 0.5 MG/0.5 ML SYRINGE IVP PRN (12:53)
[2024-01-15] MEDS ORDERED: ATROPINE ABBOJECT 1 MG/10 ML SYRINGE IVP PRN (12:53)
[2024-01-15] MEDS ORDERED: NALOXONE 0.4 MG/ML VIAL IVP PRN (12:53)
[2024-01-15] MEDS ORDERED: MORPHINE 2 MG/ML CARPUJECT IVP PRN (12:53)
[2024-01-15] MEDS ORDERED: fentaNYL 100 MCG/2 ML VIAL IVP PRN (12:53)
[2024-01-15] MEDS ORDERED: PROPOFOL 200 MG/20 ML VIAL IVP ONE (12:54)
[2024-01-15] MEDS ORDERED: LIDOCAINE-MPF 2% 5 ML VIAL ONE (12:54)
[2024-01-15] MEDS ORDERED: fentaNYL 100 MCG/2 ML VIAL ONE ×2 (12:55→15:57)
[2024-01-15] MEDS ORDERED: MIDAZOLAM 2 MG/2 ML VIAL ONE (12:56)
[2024-01-15] MEDS ORDERED: LACTATED RINGERS 1,000 ML IV SCH (13:00)
[2024-01-15] MEDS ORDERED: DEXAMETHASONE 4 MG/ML VIAL ONE (13:06)
[2024-01-15] MEDS ORDERED: ONDANSETRON 4 MG/2 ML VIAL ONE ×2 (13:06→16:26)
[2024-01-15] MEDS: BUPIVACAINE 0.5%-EPI 1:200000 PF 30 ML VIAL SUBQ ONE (15:40)
--- NOTE | 2024-01-15 16:35 | OPERATIVE REPORT ---
Operative Report - General Procedure Date: 01/15/24 Planned Procedure: LEFT excisional breast biopsy with preoperative needle localization LEFT axillary sentinel lymph node biopsy Pre-Op Diagnosis: LEFT breast cancer Procedure Performed: LEFT excisional breast biopsy with preoperative needle localization LEFT axillary sentinel lymph node biopsy Post Op Diagnosis: Same - Procedure Note Primary Surgeon: Donaldo Moreira MD Anesthesia Provider: Antonio Chin CRNA Anesthesia Technique: General ET tube, Local (30 mL of half percent Marcaine with epinephrine) IV Fluids (mL): 1,000 Estimated Blood Loss (mL): 15 Drain/Tube Type: Other (None) Indications: As above Complications: None - Other Other Information/Narrative: After verbal and written informed consent was obtained detailing the operation, the alternatives the operation including no operation, risks of infection, bleeding requiring transfusion with its risks, nerve injury, and and after I met with the patient confirming the surgery and the site of surgery, the patient was brought to the operative suite and placed supine on the operating table. Great care was taken to avoid pressure points to prevent pressure necrosis or nerve injury. Monitoring devices were applied along with TEDs and pneumatic compression stockings (to prevent DVT). The patient received preoperative antibiotics for surgical prophylaxis. Antonio Chin CRNA sedated and anesthetized the patient for the entire procedure. The patient was prepped and draped in the usual sterile manner. A "time in" then confirmed that the patient was identified with 3 identifiers (name, date, and medical record number), the history and physical was updated and in the chart, the signed consent confirming the procedure was in the chart, the patient was in the correct position, the aforementioned prophylactic measures were in place or given, we had the correct personnel and equipment to complete the procedure and that anesthesia and the surgical team were given an opportunity to express any concerns. With the agreement of everyone in the room we proceeded with the operation. A curvilinear incision was made overlying the tip of the needle and dissection was carried out down to the needle tip using a combination of sharp dissection with Metzenbaum scissors and Bovie electrocautery. Meticulous hemostasis was achieved using Bovie electrocautery. Great care was taken to ensure that a 1 cm margin was obtained around the entire lesion. Once the lesion and needle were grasped with a Bharath the needle was removed leaving the wire in place. Once the dissection proceeded to its deepest point the mass was excised using application of Metzenbaum scissors. At this point a small feeding blood vessel was encountered and hemostasis was obtained using Bovie electrocautery but not before some small amount of blood loss occurred. The lesion was then marked with a short silk stitch superiorly, a long silk stitch laterally, and a double stitch deep. The specimen was sent off the operative field and permission was given to send it to first to radiology for radiographic confirmation of excision and then to pathology. Ther phone call came from radiology confirming that there was complete excision of both clips as well and as the wire. The cavity was examined and meticulous hemostasis was again noted. The cavity was copiously irrigated using warm sterile saline. The subcutaneous tissues were approximated using simple 3-0 Vicryl suture. The skin incision was approximated with 4-0 Monocryl in a subcuticular fashion. I then directed my attention to the sentinel lymph node biopsy. There was initially some difficulty getting the counter to work. This was eventually resolved and initial readings in the subareolar region were in the thousands whereas readings in the axilla were mostly in the teens. A transverse incision was made over the area with the greatest activity and dissection was carried out down to the axilla proper using Bovie electrocautery. Some of the subcutaneous tissue was removed in order to make access a bit easier. With some difficulty the sentinel lymph node was located in the 10-second count was 3595. This was far away higher than any other tissue nearby.This was removed and sent to pathology separately for evaluation. This wound was copiously irrigated using warm sterile saline. The subcutaneous tissues were approximated using interrupted 3-0 Vicryl suture. The skin was approximated using a 4-0 running Monocryl suture. Both cavities and the overlying skin were then injected using all of the half percent Marcaine with epinephrine. The skin was cleaned of its prep and Dermabond was applied. At this point a timeout was performed that confirmed that all counts were correct x2, the procedure that was performed, the blood loss, the IV fluids administered, the patient's condition, and any concerns of the operating team had. Having tolerated the procedure well, the patient was taken recovery room in good and stable condition. The plan is for outpatient discharge when the patient is adequately recovered. CPT 14760 (excisional breast biopsy with preoperative needle localization) CPT 83696 (excision of deep axillary lymph node - sentinel lymph node) This document was created in part using voice recognition technology. Because of the inherent limitations of the system, occasional same sounding word substitutions and grammatical errors do occur and persist despite proofreading. Please read this document for content.
[2024-01-15] MEDS: LACTATED RINGERS 500 ML IV ONE (16:38)
[2024-01-15] MEDS ORDERED: HYDROcod/ACETAM 5/325 MG TABLET PO PRN (17:20)
[2024-01-15] MEDS: HYDROcod/ACETAM 5/325 MG TABLET ONE (17:21)
[2024-01-15 17:34] VITALS: BP 167/69; O2SAT 95
--- NOTE | 2024-01-16 10:28 | Mammography Report ---
SPECIMEN: 01/15/2024 CLINICAL: Left breast specimen. Correlation is made to exams dated: 01/15/2024 localization, 12/11/2023 mammogram, and 12/04/2023 ultras ound biopsy - [facility]. Specimen contains both clips and the wire. IMPRESSION: SPECIMEN Specimen contains both clips and the wire. This exam was interpreted at Station ID: [id number]. Javier Matta M.D. lc/:01/16/2024 07:54:55 BI-RADS CATEGORY: () - Unspecified - other recall n/a LATERALITY: (B)
--- NOTE | 2024-01-16 10:28 | Ultrasound Report ---
NEEDLE LOCALIZATION LEFT BREAST: 01/15/2024 CLINICAL: Left breast wire placement. Correlation is made to exams dated: 12/11/2023 mammogram, 12/04/2023 ultrasound biopsy, 12/04/2023 mamm ogram, 11/27/2023 ultrasound, 11/27/2023 mammogram - [facility], and 07/25/2021 mammo [facility]. A needle localization was performed for the abnormality located in the left breast at 1 o'clock middl e depth 7 cm from the nipple. The skin was prepped in the usual manner. A needle was inserted into the targeted area. Surgeon requested the needle to be left in place with the wire. The second biopsy clip was specifical ly targeted with the non-equivocal malignant finding. IMPRESSION: NEEDLE LOCALIZATION Successful 1:00 breast mass needle localization. Surgeon requested the needle to be left in place with the wire. The second biopsy clip was specifical ly targeted with the non-equivocal malignant pathology result. This exam was interpreted at Station ID: [id number]. Javier Matta M.D. lc/:01/15/2024 12:03:33 BI-RADS CATEGORY: () - Unspecified - other recall n/a LATERALITY: (B)
--- NOTE | 2024-01-16 18:10 | ANESTHESIA POST OP EVALUATION ---
Anesthesia Post Eval - Post Anesthesia Eval Vitals: Last Vital Signs Temp 36.6 C 01/15/24 17:22 Pulse 60 01/15/24 17:22 Resp 16 01/15/24 17:22 BP 167/69 H 01/15/24 17:22 Pulse Ox 95 01/15/24 17:22 O2 Flow Rate CV Function Including HR & BP: Stable Pain Control: Satisfactory Nausea & Vomiting: Negative Mental Status: Baseline Respiratory Status: Airway Patent Hydration Status: Satisfactory Anesthesia Complications: None
== END 2024-01-15 09:24 | disposition home or self-care (01) ==
LOC: SDS 09:23
PROVIDERS: ATTEND Surgery
PROC: 0HBU0ZX Excision of Left Breast, Open Approach, Diagnostic (ICD-10-PCS; principal; 2024-01-15 13:15)
DX: C50.412 Malignant neoplasm of upper-outer quadrant of left female breast (principal); Z17.0 Estrogen receptor positive status [ER+]; E66.01 Morbid (severe) obesity due to excess calories; Z68.42 Body mass index [BMI] 45.0-49.9, adult; E11.9 Type 2 diabetes mellitus without complications
CPT/HCPCS: 19125; 19285; 38525; 38900; 76098; A9270; J7120

== ENCOUNTER 2024-01-30 11:26 | Outpatient (CLI) | payer MEDICARE ==
--- NOTE | 2024-01-30 11:59 | Sleep Patient Instructions ---
Sleep Center Visit Summary - Patient Visit Information Reason for Visit: 7-month follow-up - Patient Instructions Additional Instructions: You were here for follow up of CPAP therapy. You will be continued on CPAP therapy with pressure at 10-12 cmH2O. You should follow up with sleep care in 12 months. You may contact us sooner for any questions or concerns. - Clinic Information Contact: [facility] [address] [place] [address] [email or web address] T: [phone]
--- NOTE | 2024-01-30 12:04 | SLEEP CARE CONSULTATION ---
Information from patient questionnaire entered by Angelia Osei. I have reviewed and concur with the information entered by Angelia Osei. This document represents the service I personally performed and the decisions made by , Farzana Casiano ARNP. History of Present Illness Service Date and Time: 01/30/2024 1126 Previous diagnosis: Moderate, Obstructive Sleep Apnea-Hypopnea Syndrome AHI: 16.8 (03/2022) Reason for follow up: other (7 MONTH F/U) Equipment type: CPAP (ResMed Airsense 11, s/u 06/2022) Equipment obtained from: [facility] (getting supplies) Mask style: Nasal Mask brand: Respironics (Dreamwear) Backup mask available: Yes (old mask) Last cushion change: 1 month Prior sleep studies: No Type of Sleep Study: Polysomnography (DONE 04/12/22) HPI additional information: MELODY CORDOVA was diagnosed to have moderate, AHI 16.8, obstructive sleep apnea-hypopnea syndrome and returned today for CPAP therapy seven months follow- up. Sleep Study - Results Type of Sleep Study: Polysomnography (DONE 04/12/22) Prior sleep studies: No CPAP Compliance Data - Data Reviewed with Patient Average duration of nightly device use: 7 HRS 7 MINS Compliance rate %: 89 (07/02/23-01/27/24; 187/210 days used) Current pressure setting (cmH2O): 10-12 Average residual AHI: 1.3 Central apnea: 0.2 Obstructive apnea: 0.9 Hypopnea: 0.2 Average large leak: 0.9 L/min Subjective Missed days of use due to: reports: other (falling asleep in chair without mask on) Patient concerns: reports: epistaxis (recent, in last 2 weeks; hx of bloody noses). denies: aerophagia, mask discomfort, air blowing in eyes, mask leak noise, condensation in mask/hose, nasal congestion, dry mouth, nose, throat Observed to snore while using device: No Current pressure setting perceived as: comfortable On therapy, patient: reports: sleeping better, awakening more refreshed, being more awake and alert during the day, more rested overall. denies: drowsiness while driving Initial Nova Sleepiness Scale score: 5 (04/05/2022) Current Nova Sleepiness Scale score: 2 (01/30/24) Allergies and Home Medications Known drug allergies: Yes (as listed) Drug allergies reviewed: Yes Home medication list reviewed: Yes (no changes) Allergy and home medication list: Allergies fish oil Allergy (Verified 01/28/24 11:09) Rash shrimp Allergy (Verified 01/28/24 11:09) Itching Sulfa (Sulfonamide Antibiotics) Allergy (Verified 01/28/24 11:09) Rash Review of Systems Review of systems same as previous: No (BREAST CANCER) Physical Exam Vital signs obtained and entered by: ANGELIA Barahona MA Blood Pressure: 152/75 (LEFT ARM) Cuff size: long Heart Rate: 60 O2 Saturation: 93 Height: 5 ft 5 in Weight: 279 lb 12.8 oz Body Mass Index: 46.5 BMI Classification: Morbidly Obese Impression and Plan 1. Obstructive Sleep Apnea-Hypopnea Syndrome, moderate, with good treatment compliance and good apnea control. On CPAP therapy, the patient has better sleep quality and is more rested overall. She has significant improvement sleep apnea. She is very satisfied with her current CPAP therapy and feels the pressures are comfortable. Patient's apnea severity and rationale for treatment to reduce apnea, improve sleep quality and reduce cardiovascular and cerebrovascular events was reviewed. I also reviewed the benefit of consistent device use of CPAP for diabetes, depression/anxiety, attention deficit. 2. Obesity, unspecified. Currently patients BMI is 46.5. Obesity increases the risk of apnea, CPAP pressure requirements and overall health risks especially cardiovascular and diabetes. Thus patient is advised to lose weight. * Continue auto CPAP pressure at 10-12 cmH2O * Notify me if snoring with mask or feeling that the pressure is too much or too little * Attempt to lose weight * Call this office if any problems using CPAP * Return for follow up in 12 months, or sooner if concerns arise Counseling Topics: Spare mask, Weight loss health impact Follow up with Sleep Care in: 1 year Visit Type: In Office Time Spent with Patient (minutes): 20 Provider Statement: I spent 100% of the Face to Face Visit with the patient with greater than 50% spent counseling the patient and coordination of care.
[2024-01-30 12:11] VITALS: BP 152/75; O2SAT 93
== END 2024-01-30 11:27 | disposition home or self-care (01) ==
LOC: SC 11:26
PROVIDERS: ATTEND Nurse Practitioner Family
DX: G47.33 Obstructive sleep apnea (adult) (pediatric) (principal); E66.01 Morbid (severe) obesity due to excess calories; Z68.42 Body mass index [BMI] 45.0-49.9, adult
CPT/HCPCS: 99213; G0463; 99212